=== PATIENT | female | born 1985 | race Caucasian/White ===

== ENCOUNTER 2019-03-01 16:35 | Emergency (ER) | payer OTHER ==
[2019-03-01] MEDS ORDERED: SODIUM CHLORIDE 0.9% 500 ML INFUS.BAG IV ONE (16:46)
--- NOTE | 2019-03-01 16:46 | PDOC ---
Rapid Medical Evaluation Time Seen by Provider: 03/01/19 16:45 Medical Evaluation: Allergies Allergy/AdvReac Type Severity Reaction Status Date / Time No Known Allergies Allergy Verified 03/01/19 16:45 03/01/19 16:45 HPI: hot flash and near syncopy with associated nausea PE: No gross deficits ORDERS U preg, labs, fluids Discharge Disposition - Diagnosis Near syncope - Referrals Referrals: Dorothy Pascual MD [Primary Care Provider] - - Patient Instructions - Post Discharge Activity
[2019-03-01 16:49] VITALS: TEMP 97.8; BMI 33.3
[2019-03-01 18:46] LABS: BASO % 1.1 % (0-2.0); EOS % 0.6 % (0-4.5); HEMATOCRIT 40.7 % (32.4-45.2); HEMOGLOBIN 13.1 GM/dL (10.7-15.3); LYMPH % 8.5 % (8-40); MCH 26.4 pg (25.7-33.7); MCHC 32.2 g/dl (32.0-36.0); MEAN CELL VOLUME 81.9 fl (80-96); MONO % 4.8 % (3.8-10.2); PLATELET COUNT 292 K/MM3 (134-434); RBC 4.98 M/mm3 (3.60-5.2); RDW 13.9 % (11.6-15.6); WHITE BLOOD COUNT 12.9 K/mm3 (4.0-10.0)
[2019-03-01 19:23] LABS: BILIRUBIN,TOTAL 0.2 mg/dL (0.2-1); BLOOD UREA NITROGEN 9.7 mg/dL (7-18); CALCIUM 9.3 mg/dL (8.5-10.1); CREATININE 0.8 mg/dL (0.55-1.3); POTASSIUM 4.1 mmol/L (3.5-5.1); TOT PROT 7.6 g/dl (6.4-8.2)
--- NOTE | 2019-03-01 20:00 | PDOC ---
History of Present Illness - General Chief Complaint: Heat Exhaustion Stated Complaint: HEAT EXHAUSTION Time Seen by Provider: 03/01/19 16:45 History Source: Patient Exam Limitations: No Limitations - History of Present Illness Initial Comments: Riri Grey is a 33 yo Obese F with a hx of self diagnosed anxiety and multiple panic attacks who presents to the ER after what she describes as having experienced a panic attack earlier today while she was at work. The patient states she was sitting down inside her air conditioned office when she began feeling extremely warm, started sweating, felt like her heart was beating fast and experienced palpitations, became mildly short of breath and felt like she couldn't get any air inside. The patient has not formally seen a psychiatrist and been diagnosed with either anxiety or panic attacks, and has no rescue meds available for her self diagnosed panic attacks so she called an ambulance to come bring her to the hospital to be evaluated. By the time the ambulance arrived she was asymptomatic and reverted back to how she normally feels. When I evaluated the patient in the ER she denies feeling any abnormalities. She denies current chest pain, SOB, difficulty breathing, headache, nausea, vomiting, neck pain, blurry vision, abdominal pain, diarrhea, constipation, dysuria, frequency, urgency, or syncope. PCP: Dr. Dorothy Pascual PSH: None reported Social Hx: Denies smoking, drinking, or other substance usage. Allergies: NKA, NKDA Past History - Past Medical History Allergies/Adverse Reactions: Allergies Allergy/AdvReac Type Severity Reaction Status Date / Time No Known Allergies Allergy Verified 03/01/19 16:45 Home Medications: Ambulatory Orders NK [No Known Home Medication] 03/01/19 COPD: No - Suicide/Smoking/Psychosocial Hx Smoking History: Never smoked Have you smoked in the past 12 months: No Hx Alcohol Use: No Drug/Substance Use Hx: No Review of Systems - Review of Systems Able to Perform ROS?: Yes Comments:: CONSTITUTIONAL: Present: Diaphoresis Absent: fever, chills, generalized weakness, malaise, loss of appetite HEENT: Absent: rhinorrhea, nasal congestion, throat pain, throat swelling, difficulty swallowing, mouth swelling, ear pain, eye pain, visual Changes CARDIOVASCULAR: Present: palpitations Absent: chest pain, syncope, irregular heart rate, lightheadedness, peripheral edema RESPIRATORY: Present: shortness of breath Absent: cough, dyspnea with exertion, orthopnea, wheezing, stridor, hemoptysis GASTROINTESTINAL: Present: Nausea Absent: abdominal pain, abdominal distension, vomiting, diarrhea, constipation, melena, hematochezia GENITOURINARY: Absent: dysuria, frequency, urgency, hesitancy, hematuria, flank pain, genital pain MUSCULOSKELETAL: Absent: myalgia, arthralgia, joint swelling SKIN: Absent: rash, itching, pallor HEMATOLOGIC/IMMUNOLOGIC: Absent: easy bleeding, easy bruising, lymphadenopathy, frequent infections ENDOCRINE: Absent: unexplained weight gain, unexplained weight loss, heat intolerance, cold intolerance NEUROLOGIC: Absent: headache, focal weakness or paresthesias, dizziness, unsteady gait, seizure, mental status changes, bladder or bowel incontinence PSYCHIATRIC: Present: Anxiety Absent: depression, suicidal or homicidal ideation, hallucinations. *Physical Exam - Vital Signs Last Vital Signs Temp Pulse Resp BP Pulse Ox 97.8 F 85 18 141/88 99 03/01/19 16:45 03/01/19 16:45 03/01/19 16:45 03/01/19 16:45 03/01/19 16:45 - Physical Exam Comments: GENERAL: Obese. Well developed, well nourished. Awake and alert. No acute distress. HEENT: Normocephalic, atraumatic. PERRLA, EOMI. No conjunctival pallor. Sclera are non- icteric. Moist mucous membranes. Oropharynx is clear. NECK: Supple. Full ROM. No JVD. No lymphadenopathy. CARDIOVASCULAR: Regular rate and rhythm. No murmurs, rubs, or gallops. Distal pulses are 2+ and symmetric. PULMONARY: No evidence of respiratory distress. Lungs clear to auscultation bilaterally. No wheezing, rales or rhonchi. ABDOMINAL: Soft. Non-tender. Non-distended. No rebound or guarding. No organomegaly. Normoactive bowel sounds. MUSCULOSKELETAL Normal range of motion at all joints. No bony deformities or tenderness. No CVA tenderness. EXTREMITIES: No cyanosis. No clubbing. No edema. No calf tenderness. SKIN: Warm and dry. Normal capillary refill. No rashes. No jaundice. NEUROLOGICAL: Alert, awake, appropriate. Cranial nerves 2-12 intact. No deficits to light touch in face, upper extremities and lower extremities. No motor deficits in the in face, upper extremities and lower extremities. Normal speech. Gait is normal without ataxia. PSYCHIATRIC: Cooperative. Good eye contact. Appropriate mood and affect. ED Treatment Course - LABORATORY CBC & Chemistry Diagram: 03/01/19 18:35 03/01/19 18:35 - ADDITIONAL ORDERS Additional order review: Laboratory Results 03/01/19 03/01/19 18:37 18:35 Sodium 140 Potassium 4.1 Chloride 107 Carbon Dioxide 26 Anion Gap 7 L BUN 9.7 Creatinine 0.8 Est GFR (CKD-EPI)AfAm 113.06 Est GFR (CKD-EPI)NonAf 97.55 Random Glucose 97 Calcium 9.3 Total Bilirubin 0.2 AST 16 ALT 32 Alkaline Phosphatase 69 Total Protein 7.6 Albumin 4.0 Serum , Qual Negative 03/01/19 18:35 RBC 4.98 MCV 81.9 MCHC 32.2 RDW 13.9 MPV 9.0 Neutrophils % 85.0 H Lymphocytes % 8.5 Monocytes % 4.8 Eosinophils % 0.6 Basophils % 1.1 - Medications Given in the ED: ED Medications Discontinued Medications Generic Name Dose Route Start Last Admin Trade Name Freq PRN Reason Stop Dose Admin Sodium Chloride 1,000 ml 03/01/19 16:46 03/01/19 18:35 Normal Saline - IV 03/01/19 16:47 1,000 ml ONCE ONE Administration Medical Decision Making - Medical Decision Making Riri Grey is a 33 yo Obese F with a hx of self diagnosed anxiety and multiple panic attacks who presents to the ER after what she describes as having experienced a panic attack earlier today while she was at work. The patient states she was sitting down inside her air conditioned office when she began feeling extremely warm, started sweating, felt like her heart was beating fast and experienced palpitations, became mildly short of breath and felt like she couldn't get any air inside. The patient has not formally seen a psychiatrist and been diagnosed with either anxiety or panic attacks, and has no rescue meds available for her self diagnosed panic attacks so she called an ambulance to come bring her to the hospital to be evaluated. By the time the ambulance arrived she was asymptomatic and reverted back to how she normally feels. When I evaluated the patient in the ER she denies feeling any abnormalities. Vital Signs Temp Pulse Resp BP Pulse Ox 97.8 F 85 18 141/88 99 03/01/19 16:45 03/01/19 16:45 03/01/19 16:45 03/01/19 16:45 03/01/19 16:45 DDx IBNLT: Panic attack, anxiety, ACS/[place], arrhythmia, electrolyte/metabolic disturbance, - IUP vs ectopic, dehydration. Plan: Labs, HCG, EKG, IV hydration, re-assess. Cbc shows mild leukocytosis HCG negative CMP unremarkable EKG: NS rate of 80, MT 148, no delta waves, Qtc 462, no ST elevations or depressions. Inverted T wave in lead 3. Disposition: Home with PCP and psychiatry FU *DC/Admit/Observation/Transfer Diagnosis at time of Disposition: Near syncope, Panic attack - Discharge Dispostion Disposition: HOME Condition at time of disposition: Improved Decision to Admit order: No - Referrals Referrals: Dorothy Pascual MD [Staff Physician] - Rachel Finnegan MD [Staff Physician] - - Patient Instructions Printed Discharge Instructions: Anxiety and Panic Attacks (Alternative Therapy) , DI for Panic Disorder Additional Instructions: You came into the ER after having experienced a panic attack. We looked at your blood and did an EKG and found no abnormalities. We are giving you the number of a psychiatrist to follow up with in case this happens again. Please make sure to call up your primary care doctor and schedule a follow up appointment in the next week to make sure you are being taken care of and getting better. Come back to the ER immediately if your pain worsens, you have chest pain, have another panic attack, or have any other new or worsening concerns. Thank you for coming to the [facility] ER. We hope you feel better soon! Print Language: [place] - Post Discharge Activity
--- NOTE | 2019-03-01 20:51 | PDOC ---
Documentation entered by Korin Taylor SCRIBE, acting as scribe for John Alexis MD. John Alexis MD: This documentation has been prepared by the scribe, Korin Taylor SCRIBE, under my direction and personally reviewed by me in its entirety. I confirm that the documentation accurately reflects all work, treatment, procedures, and medical decision making performed by me. Attending Attestation - Resident Resident Name: Seamus Wilson - ED Attending Attestation I have performed the following: I have examined & evaluated the patient, The case was reviewed & discussed with the resident, I agree w/resident's findings & plan, Exceptions are as noted - HPI HPI: 03/01/19 20:27 The patient is a 33-year-old female, with a past medical history of self- diagnosed panic attacks and anxiety. The patient reports experiencing a panic attack this afternoon while at work. She states she began feeling hot, sweaty, short of breath, and her heart was also racing. She reports that this felt like her usual panic attacks. She denies any chest pain. - Physicial Exam PE: 03/01/19 20:50 Patient is awake and alert, morbidly obese, in no apparent distress Normocephalic and atraumatic PERRLA, EOMI No JVD cta rrr No focal neurological deficits - Medical Decision Making 03/01/19 20:50 Patient is a 33-year-old female with history of morbid obesity presents with signs and symptoms of acute panic attack. ACS or P highly unlikely. Patient is asymptomatic and without focal neurological deficits. Will obtain EKG to rule out underlying dysrhythmia. Likely discharge.
[2019-03-01 21:24] VITALS: BP 139/74; PULSE 83
== END 2019-03-01 21:25 | disposition home or self-care (01) ==
LOC: JER 16:35
PROC: 3E0337Z Introduction of Electrolytic and Water Balance Substance into Peripheral Vein, Percutaneous Approach (ICD-10-PCS; principal; 2019-03-01)
DX: R55 Syncope and collapse (principal); F41.0 Panic disorder [episodic paroxysmal anxiety]; E66.9 Obesity, unspecified
CPT/HCPCS: 36415; 80053; 84703; 85025; 99284-25